=== PATIENT | male | born 1995 | race Caucasian/White ===

== ENCOUNTER → 2018-09-06 | Outpatient (CLI) | payer OTHER ==
--- NOTE | 2018-09-07 07:32 | REP ---
HISTORY: Left shoulder pain. COMPARISON: None. The acromioclavicular joint is within normal limits. There is patchy and linear T2 hypersignal seen in the supraspinatus tendon without evidence of supraspinatus muscle belly atrophy or retraction. Normal appearing low signal is seen throughout the subscapularis, infraspinatus, and teres minor tendons. The biceps tendon resides within the bicipital groove. The acromion process is type 1. There is no glenohumeral joint effusion. There is fluid in the subcoracoid recess. The coracoacromial and coracohumeral ligaments are not particularly abnormally thickened. There is no evidence of labral signal abnormality. The marrow signal is within normal limits. IMPRESSION: Evidence of supraspinatus tendinitis/tendinopathy. Electronically Signed by Ruddy Harris DO 09/07/2018 09:11 A
== END ==
LOC: M RAD 14:47
PROVIDERS: ATTEND Family Medicine
DX: M75.32 Calcific tendinitis of left shoulder (principal); M25.512 Pain in left shoulder

== ENCOUNTER 2018-12-16 08:30 | Emergency (ER) | payer OTHER ==
[~2018-12-16] VITALS: Ht 180.3 cm; Wt 96.0 kg
[2018-12-16] MEDS ORDERED: LIDOCAINE VISCOUS 2% SOLN 15ML UDC SS ONE (09:45)
[2018-12-16] MEDS ORDERED: PENICILLIN V POTASSIUM 500 MG TAB PO ONE (09:45)
[2018-12-16] MEDS ORDERED: PENI500T PO (09:58)
[2018-12-16] MEDS ORDERED: LIDO1SOL8 PO (09:58)
[2018-12-16 10:01] VITALS: BP 137/83
== END 2018-12-16 10:07 | disposition home or self-care (01) ==
LOC: M ED 08:30
DX: J02.0 Streptococcal pharyngitis (principal)

== ENCOUNTER 2019-05-06 09:39 | Emergency (ER) | payer OTHER ==
[~2019-05-06] VITALS: Ht 180.3 cm; Wt 100.4 kg
[2019-05-06 09:39] VITALS: BP 138/80
[~2019-05-06 09:39] MED LIST: LIDO1SOL8 PO; PENI500T PO
[2019-05-06] MEDS ORDERED: IBUP-1022 PO (09:45)
[2019-05-06] MEDS ORDERED: DICL75TA PO (10:02)
[2019-05-06] MEDS ORDERED: CYCL5TAB PO (10:02)
== END 2019-05-06 10:15 | disposition home or self-care (01) ==
LOC: M ED 09:39
DX: M54.5 Low back pain (principal)

== ENCOUNTER → 2019-05-30 | Outpatient (REF) | payer OTHER ==
[~2019-05-30] MED LIST changes: +CYCL5TAB PO; +DICL75TA PO; +IBUP-1022 PO; -LIDO1SOL8 PO; +LIDO2SOL17 PO
== END ==
LOC: M LAB REF 14:38
PROVIDERS: ATTEND Physician Assistant Medical
DX: N50.9 Disorder of male genital organs, unspecified (principal)